=== PATIENT | female | born 1970 | race Caucasian/White ===

== ENCOUNTER → 2020-04-25 | Outpatient (CLI) | payer OTHER ==
--- NOTE | 2020-04-25 10:45 | RAD ---
AP and Lateral Views of the Chest 04/25/2020 12:00 AM Indication: Reason: ASTHMA,disabity determination/report include cardio-thorasic ratio / Spl. Instructions: / History: Comparison: None Findings: There is no focal consolidation or infiltrate identified. The cardiomediastinal silhouette is within normal limits. There is no evidence of pneumothorax or pleural effusion. Likely breast marking clip noted on the left. Correlate with procedural history. No acute osseous abnormalities are identified. Impression: No evidence of acute cardiopulmonary process. Electronically signed by: Hector Curtis MD (04/25/2020 10:42 AM) [id number]
== END ==
LOC: RAD 08:48
PROVIDERS: ATTEND Anesthesiology Pain Medicine
DX: J45.909 Unspecified asthma, uncomplicated (principal)
CPT/HCPCS: 71046

== ENCOUNTER → 2020-06-11 | Outpatient (CLI) | payer OTHER ==
--- NOTE | 2020-06-11 10:09 | RAD ---
EXAM: Cervical spine, 2 views. HISTORY: Pain. Cervical radiculopathy. COMPARISON: None. FINDINGS: 2 views of the cervical spine are obtained. There is no listhesis. The vertebral bodies are normal in height and the disc spaces are preserved. The prevertebral soft tissues are unremarkable. There is right facet arthropathy at the upper cervical levels. IMPRESSION: No acute osseous finding. Degenerative right facet arthropathy at the upper cervical leve ls. Electronically signed by: Molly Thurston MD (06/11/2020 10:07 AM) [id number]
== END ==
LOC: RAD 09:29
DX: M47.22 Other spondylosis with radiculopathy, cervical region (principal)
CPT/HCPCS: 72040